=== PATIENT | female | born 1965 | race African-American/Black ===

== ENCOUNTER → 2016-09-04 | Emergency (ER) | payer OTHER ==
[~2016-09-04] VITALS: Ht 170.2 cm; Wt 87.0 kg
[2016-09-04 13:07] VITALS: BP 183/101
== END ==
LOC: ER 14:24
DX: R07.9 Chest pain, unspecified (principal); Z53.21 Procedure and treatment not carried out due to patient leaving prior to being seen by health care provider

== ENCOUNTER 2016-12-28 00:51 | Emergency (ER) | payer MEDICAID, OTHER ==
[~2016-12-28] VITALS: Ht 167.6 cm; Wt 95.0 kg
[2016-12-28] MEDS ORDERED: AZITHROMYCIN 500 MG in DEXT 5% WATER 250 ML IV ONE (03:45)
[2016-12-28] MEDS ORDERED: HYDRALAZINE 20MG/ML VIAL IV NR (03:45)
[2016-12-28] MEDS ORDERED: CEFTRIAXONE 1 G PREMIX 50 ML IV ONE (03:45)
[2016-12-28 04:12] LABS: BASOPHILS % 0.6 % (0.0-2.0); EOSINOPHILS % 3.9 % (0.0-5.0); HEMATOCRIT. 36.5 % (36.0-48.0); LYMPHOCYTES % 28.4 % (20.0-50.0); MEAN CORPUSCULAR HEMOGLOBIN 28.2 pg (28.0-32.0); MEAN CORPUSCULAR VOLUME 86.2 fL (81.0-99.0); MEAN PLATELET VOLUME 8.3 fl (7.4-10.4); MONOCYTES % 12.4 % (2.0-8.0); NEUTROPHILS % 54.7 % (40.0-76.0); PLATELET 253 x1000/uL (130-400); RED BLOOD CELL COUNT 4.24 mill/uL (4.2-5.4); RED CELL DISTRIBUTION WIDTH 14.7 % (11.6-14.6)
[2016-12-28 04:16] LABS: AMMONIA 15 uMol/L (<32)
[2016-12-28 04:24] LABS: CARBON DIOXIDE 27 mEq/L (21-32); CHLORIDE 104 mEq/L (98-107); CREATINE KINASE 201 IU/L (26-192); ETHANOL BLOOD < 10 mg/dL; TROPONIN I < 0.02 ng/mL (0.00-0.04)
[2016-12-28 04:37] LABS: D-DIMER 0.43 mg/L FEU (<0.50); PARTIAL THROMBOPLASTIN TIME 27.3 sec (23.4-31.0); PROTHROMBIN TIME 10.8 sec (9.4-11.6)
[2016-12-28 04:44] LABS: BG CARBOXYHEMOGLOBIN 2.5 % (0.5-1.5); BG DEOXYHEMOGLOBIN 4.8 % (0.0-5.0); BG FRACTION INSPIRED OXYGEN 21; BG HCO3 ACT 26.5 mmol/L (22.0-26.0); BG OXYGEN SATURATION 95.1 % (92.0-98.5); BG OXYHEMOGLOBIN 92.7 % (94.0-97.0); BG PCO2 45.5 mmHg (35.0-45.0); BG PH 7.383 (7.350-7.450); BG PO2 76.1 mmHg (75.0-100.0); BG SAMPLE SITE RIGHT BRACHIAL; BG TOTAL HEMOGLOBIN 12.9 g/dL (12.0-18.0); BG VENT MODE ROOM AIR
[2016-12-28 06:00] VITALS: BP 183/109
[2016-12-28 07:13] LABS: CLARITY URINE CLEAR (CLEAR); COLOR URINE YELLOW (YELLOW); GLUCOSE URINE NEGATIVE (NEGATIVE); KETONES URINE NEGATIVE (NEGATIVE); LEUKOCYTE ESTERASE URINE NEGATIVE (NEGATIVE); NITRITE URINE NEGATIVE (NEGATIVE); OCCULT BLOOD URINE NEGATIVE (NEGATIVE); PROTEIN URINE NEGATIVE (NEGATIVE); SPECIFIC GRAVITY URINE 1.005 (1.005-1.030); UROBILINOGEN URINE 0.2 E.U./dL (0.2-1.0)
[2016-12-28 07:27] LABS: *AMPHETAMINES SCREEN URINE NEGATIVE (NEGATIVE); *BARBITURATES SCREEN URINE NEGATIVE (NEGATIVE); *BENZODIAZEPINES SCREEN URINE NEGATIVE (NEGATIVE); *COCAINE SCREEN URINE NEGATIVE (NEGATIVE); CANNABINOID URINE SCREEN PRESUMTIVE POSITIVE (NEGATIVE); METHADONE URINE SCREEN NEGATIVE (NEGATIVE); OPIATES URINE SCREEN NEGATIVE (NEGATIVE); PHENCYCLIDINE URINE SCREEN PRESUMTIVE POSITIVE (NEGATIVE)
== END 2016-12-28 06:32 | disposition left against medical advice (07) ==
LOC: ER 00:51 → ENRESERV 07:10 → CANRESERV 07:10 → CANBEDREQ 23:58
DX: R41.0 Disorientation, unspecified (principal); J18.9 Pneumonia, unspecified organism; I16.0 Hypertensive urgency; I10 Essential (primary) hypertension; J45.909 Unspecified asthma, uncomplicated; F12.10 Cannabis abuse, uncomplicated; F17.210 Nicotine dependence, cigarettes, uncomplicated
CPT/HCPCS: 36415; 36600; 71010; 80053; 80305; 81003; 82140; 82375; 82550; 82805; 83605; 83690; 83880; 84484; 85025; 85379; 85610; 85730; 87040; 87076; 87086; 93005; 99291; 99406; G0482; J0456; Z7610; J0696; J7060

== ENCOUNTER 2018-03-10 23:20 | Emergency (ER) | payer MEDICAID ==
[~2018-03-10] VITALS: Ht 170.2 cm; Wt 82.0 kg
[2018-03-11] MEDS ORDERED: ONDANSETRON HCL 4MG/2ML INJ IV STA (00:16)
[2018-03-11] MEDS ORDERED: MORPHINE SULFATE 4 MG/ML CPJ (NOT FOR IM USE) IV STA (00:16)
[2018-03-11] MEDS ORDERED: SODIUM CHLORIDE 0.9% 1,000 ML IV ONE (00:16)
[2018-03-11] MEDS ORDERED: KETOROLAC 30MG/ML VIAL IV STA (00:16)
[2018-03-11] MEDS ORDERED: DIAZEPAM 5 MG TABLET PO ONE (00:30)
[2018-03-11 01:22] LABS: CHLORIDE 102 mEq/L (98-107)
[2018-03-11 01:24] LABS: BASOPHILS % 0.7 % (0.0-2.0); EOSINOPHILS % 3.9 % (0.0-5.0); HEMATOCRIT. 38.2 % (36.0-48.0); HEMOGLOBIN. 12.6 g/dL (12.0-16.0); LYMPHOCYTES % 29.6 % (20.0-50.0); MEAN CORPUSCULAR VOLUME 87.9 fL (81.0-99.0); MEAN PLATELET VOLUME 8.5 fl (7.4-10.4); MONOCYTES % 12.1 % (2.0-8.0); NEUTROPHILS % 53.7 % (40.0-76.0); PARTIAL THROMBOPLASTIN TIME 25.2 sec (23.4-31.0); PLATELET 429 x1000/uL (130-400); PROTHROMBIN TIME 10.3 sec (9.1-11.1); RED BLOOD CELL COUNT 4.35 mill/uL (4.2-5.4); RED CELL DISTRIBUTION WIDTH 16.3 % (11.6-14.6)
[2018-03-11 01:26] LABS: ETHANOL BLOOD < 10 mg/dL
[2018-03-11] MEDS ORDERED: MORPHINE SULFATE 2 MG/ML CPJ (NOT FOR IM USE) IV NR (02:15)
[2018-03-11 02:54] LABS: *BARBITURATES SCREEN URINE NEGATIVE (NEGATIVE); *BENZODIAZEPINES SCREEN URINE NEGATIVE (NEGATIVE); *COCAINE SCREEN URINE PRESUMTIVE POSITIVE (NEGATIVE)
[2018-03-11 02:55] LABS: CANNABINOID URINE SCREEN NEGATIVE (NEGATIVE); METHADONE URINE SCREEN NEGATIVE (NEGATIVE); OPIATES URINE SCREEN NEGATIVE (NEGATIVE); PHENCYCLIDINE URINE SCREEN PRESUMTIVE POSITIVE (NEGATIVE)
[2018-03-11 02:56] LABS: *AMPHETAMINES SCREEN URINE NEGATIVE (NEGATIVE)
[2018-03-11 03:53] VITALS: BP 179/93
== END 2018-03-11 04:37 | disposition home or self-care (01) ==
LOC: ER 23:20
DX: M54.5 Low back pain (principal); M25.511 Pain in right shoulder; E03.9 Hypothyroidism, unspecified; Z98.890 Other specified postprocedural states
CPT/HCPCS: 36415; 71045; 74176; 80053; 80305; 83880; 84443; 84484; 85025; 85610; 85730; 96374; 96375; 99284; G0482; J1885; J2270; J2405; J7030